=== PATIENT | female | born 1940 | race Caucasian/White ===

== ENCOUNTER → 2024-06-16 13:27 | Outpatient (REF) | payer OTHER, SELFPAY | LOC: HWRAD 13:27 | PROVIDERS: ATTENDING PHYSICIAN Physician Assistant Medical | DX: M79.671 Pain in right foot (principal); M79.672 Pain in left foot; L65.9 Nonscarring hair loss, unspecified | CPT/HCPCS: 72110; 73630 ==

== ENCOUNTER 2025-06-26 13:31 | Emergency (ER) | payer OTHER, SELFPAY ==
[2025-06-26 13:38] VITALS: BP 144/92
--- NOTE | 2025-06-26 14:30 | ED.GENMED ---
History of Present Illness
<Janee Kumar DO, Resident - Last Filed: 06/28/25 15:03>
General
Chief Complaint: Fall
Source: patient
Exam Limitations: none
Time Seen by Provider: 06/26/25 14:07
Nursing documentation reviewed up to this point in time: agreed with
History of Present Illness
History of Present Illness:
Patient is an 84 year old female with no pertinent PMH presenting after a fall. Patient was out for a walk when she tripped on a curb. She landed on her face, hands and knees. Patient has an oozing laceration above her left eyebrow, small abrasions
on her nose and cheek. Patient has not had any recent falls. Patient is unsure when her last tetnus shot was.
Past History
<Janee Kumar DO, Resident - Last Filed: 06/28/25 15:03>
Past History
ED Past Medical History: Other (shingles)
ED Past Surgical History: Other (noncontributory)
Social History
Tobacco: Non-smoker
Alcohol: Occasional
Drug: None
Personal:
Living: with family
Review of Systems
<Janee Kumar DO, Resident - Last Filed: 06/28/25 15:03>
Review of Systems
Allergies reviewed?: Yes
All Other Systems: ROS reviewed and negative except as documented in HPI and ROS
Constitutional: Reports no symptoms
EENT: Reports no symptoms
Respiratory: Reports no symptoms
Cardiac: Reports no symptoms
ABD/GI: Reports no symptoms
: Reports no symptoms
Musculoskeletal: Reports no symptoms
Skin: Reports no symptoms
Neurological: Reports headache (dull)
Endocrine: Reports no symptoms
Hematologic/Lymphatic: Reports no symptoms
Psychiatric: Reports no symptoms
Phy Exam
<Janee Kumar DO, Resident - Last Filed: 06/28/25 15:03>
Physical Exam
Physical Exam:
Oozing facial laceration noted above the left eye brow. Abrasions on nasal bridge and above left lip. Abrasions noted on bilateral knees.
General Physical Exam
General Presentation: well appearing and no apparent distress
General age: appears stated age
General Skin: warm and dry
General Habitus: normal
General Mental: alert
Neurological Exam
Neurological Exam: alert, oriented x3, no motor deficits and speech normal
Skin Exam
Skin Exam: normal color and warm/dry
Psychiatric Exam
Psychiatric Exam: normal mood/affect
Course
<Janee Kumar DO, Resident - Last Filed: 06/28/25 15:03>
Orders/Labs/Results
Orders:
Orders
06/26/25 14:37
CT Cervical Spine W/o Iv Contr Stat
Comment:
Reason For Exam: fall
CT Facial Bones W/o Iv Contras Stat
Comment:
Reason For Exam: fall
06/26/25 14:38
CT Head W/o Iv Contrast Urgent
Comment:
Reason For Exam: fall
Vital Signs
Initial and Last Documented VS:
Initial Vital Signs
Temp Pulse Resp BP Pulse Ox
98.2 F 103 18 144/92 96
06/26/25 13:38 06/26/25 13:38 06/26/25 13:38 06/26/25 13:38 06/26/25 13:38
Last Documented Vital Signs
Temp Pulse Resp BP Pulse Ox
98.2 F 84 18 142/96 96
06/26/25 13:38 06/26/25 18:00 06/26/25 13:38 06/26/25 18:00 06/26/25 14:37
<Graciela Mondragon DO - Last Filed: 06/26/25 19:41>
Orders/Labs/Results
Orders:
Orders
06/26/25 14:37
CT Cervical Spine W/o Iv Contr Stat
Comment:
Reason For Exam: fall
CT Facial Bones W/o Iv Contras Stat
Comment:
Reason For Exam: fall
06/26/25 14:38
CT Head W/o Iv Contrast Urgent
Comment:
Reason For Exam: fall
Vital Signs
Initial and Last Documented VS:
Initial Vital Signs
Temp Pulse Resp BP Pulse Ox
98.2 F 103 18 144/92 96
06/26/25 13:38 06/26/25 13:38 06/26/25 13:38 06/26/25 13:38 06/26/25 13:38
Last Documented Vital Signs
Temp Pulse Resp BP Pulse Ox
98.2 F 84 18 142/96 96
06/26/25 13:38 06/26/25 18:00 06/26/25 13:38 06/26/25 18:00 06/26/25 14:37
Procedures
<Graciela Mondragon DO - Last Filed: 06/26/25 19:41>
Laceration Closure
Left Upper Face:
Status of Wound: clean
Size of Wound in cm: 2.5
Description of Wound Edges: sharp
Preparation: cleaned with soap & water
Revision/Debridement: routine- no revision
Wound exploration: extensive cleaning of contaminated wound
Type of Closure: Dermabond-skin glue
Additional information:
Partial-thickness laceration present, wound edges well-approximated and Dermabond applied. Patient tolerated well
<Janee Kumar DO, Resident - Last Filed: 06/28/25 15:03>
MDM/Problems Addressed
Differential Diagnosis Includes:
Fall
MDM/Problems Addressed:
CT head, facial bones, cervical spine ordered to assess for bleeding/fracture
<Janee Kumar DO, Resident - Last Filed: 06/28/25 15:03>
*Pulse Oximetry
SaO2: 96
Oxygen Mode of Delivery: Room air
Patient hypoxic: no
*Critical Care Note
Total Time (30-74mins, 75-104mins- exclusive of procedures): Not Applicable
ED Attending Note
<Janee Kumar DO, Resident - Last Filed: 06/28/25 15:03>
-
Portions of this chart may have been created with voice recognition software.� Occasional wrong word or��sound alike� substitutions may have occurred due to the inherent limitations of voice recognition software.
<Graciela Mondragon DO - Last Filed: 06/26/25 19:41>
ED Attending Note
Patient seen and examined by attending physician: Yes
I performed the substantive portion of visit, reviewed & personally made and approve the management plan that is documented in note by myself or LESLIE.: Yes
I performed a history and physical exam of patient and discussed management with resident, I reviewed resident's note and agree with documented findings and plan of care.: Yes
ED Attending Note:
84-year-old female presents to the ER with her for evaluation after she tripped and fell forward while walking this afternoon. No loss of consciousness. She was wearing glasses at time of impact. She reports pain to her left eyebrow and
nasal area. No neck pain. No paresthesias to arms or legs. Vital signs reviewed, patient is awake, alert, appears in no acute distress, 2.5 cm partial-thickness linear laceration present in left eyebrow, no palpable bony deformity, mild
ecchymosis and moderate abrasion present along the left nostril and left zygomatic arch, no pain with mouth opening, mucous membranes moist, PERRL, EOMI, moving all extremities symmetrically without focal deficit, GCS is 15. Patient believes she is
up-to-date on her tetanus. I advised her that she should follow-up with her primary care physician to confirm this, in addition to follow-up for wound care reevaluation. No evidence for acute traumatic process seen on CT scans. I discussed with
patient wound care instructions. Patient discharged in good condition.
Discharge Plan
Departure
Patient Disposition: Home (Routine Discharge)
Date of Disposition: 06/26/25
Time of Disposition: 17:57
Patient with high blood pressure during this ER visit?: Yes
Discharge Problem:
CHI (closed head injury), Abrasion of face, Laceration of face, Contusion of face
Instructions: Laceration Repair With Glue (DC), Head Injury in Adults (DC), Contusion (DC), BLOOD PRESSURE
Prescriptions:
No Action
cephalexin 500 MG capsule
500 mg PO TID Qty: 30 0RF
tramadol 50 MG tablet
50 mg PO Q6HPRN PRN (Reason: pain) Qty: 20 0RF
Referrals:
Lazara De Jesus PA-C [Family Provider, Family Practice]
Activity Restrictions/Additional Instructions:
Please keep wounds moist with Vaseline or bacitracin ointment ([id number] antibiotic ointment) until healed. Please avoid applying Vaseline to area of glue above your left eye until after day 3. Return to the ER for any concerns including
but not limited to worsening pain, fever, confusion or weakness
Interventions
Interventions:
*Risk Screen - Suicide Last Done: 06/26/25 13:38
*General Assessment Last Done: 06/26/25 13:38
*Neglect/Abuse Screening Last Done: 06/26/25 13:38
*ED- Fall Risk Assessment Last Done: 06/26/25 14:38
*ED COVID-19 Vaccine History Last Done: 06/26/25 14:38
*Nursing Disposition Last Done: 06/26/25 18:06
ED-Musculoskeletal Assessment Last Done: 06/26/25 14:40
ED- Neurological Assessment Last Done: 06/26/25 14:40
ED-Skin Assessment Last Done: 06/26/25 14:40
Discharge Date and Time
Discharge Date/Time: 06/26/25 18:07
Print Language: NICARAGUAN
[2025-06-26 14:38] VITALS: BMI 31.0
[2025-06-26 18:00] VITALS: BP 142/96
== END 2025-06-26 18:07 | disposition home or self-care (01) ==
LOC: EMR 13:31
PROVIDERS: EMERGENCY PHYSICIAN Emergency Medicine; FAMILY PHYSICIAN Physician Assistant Medical
DX: S09.90XA Unspecified injury of head, initial encounter (principal); S01.81XA Laceration without foreign body of other part of head, initial encounter; W01.0XXA Fall on same level from slipping, tripping and stumbling without subsequent striking against object, initial encounter; Y93.01 Activity, walking, marching and hiking
CPT/HCPCS: 99284; 12011; 70450; 70486; 72125

== ENCOUNTER → 2025-08-23 10:20 | Outpatient (REF) | payer OTHER, SELFPAY | LOC: HWRAD 10:20 | PROVIDERS: ATTENDING PHYSICIAN Physician Assistant Medical | DX: Z00.00 Encounter for general adult medical examination without abnormal findings (principal); Z12.31 Encounter for screening mammogram for malignant neoplasm of breast; Z87.39 Personal history of other diseases of the musculoskeletal system and connective tissue | CPT/HCPCS: 77063; 77067; 77080 ==